=== PATIENT | female | born 1945 | race Caucasian/White ===

== ENCOUNTER 2018-10-13 12:09 | Emergency (ER) | payer OTHER ==
[~2018-10-13] VITALS: Ht 172.7 cm; Wt 100.2 kg
[~2018-10-13 12:09] MED LIST: AMBIEN; AMBIEN PO; ASPIRIN EC325 M1; BUPROPION; CO Q-10 100 MG1 EACH PO; COLACE100 MG; EFFEXOR; EFFEXOR XR PO; ENOXAPARIN30 MG/0.3 SQ; FISH OIL 1,0001 EAC5 PO; GINGER ROOT PO; GRAPE SEED PO; HYDROCODON-ACE1 EAC7; LANTUS SUBQ; LEVOTHYROXINE0.05 MG PO; LIPITOR10 MG PO; LOW DOSE ASPIRI81 M1; NORCO 5-325 TA1 EACH PO; NORFLEX100 MG PO; NOVOLIN 70100 UNIT/1 SQ; OMEGA-3 + VITA1 EAC1 PO; PERCOCET 5-3251 EACH PO; PRAVACHOL20 MG PO; RED YEAST RICE PO; SYNTHROID; SYNTHROID PO; TRILEPTAL; VENLAFAXINE HC150 M1 PO; VERTICALM25 MG PO; VITAMIN B12 PO; VITAMIN D1000 UNI1 PO; WELLBUTRIN 100100 M1 PO; ZESTRIL; ZOFRAN ODT4 MG PO; [UNRECOGNIZED DRUG - OTHER] PO; [UNRECOGNIZED DRUG - OTHER] PO; [UNRECOGNIZED DRUG - OTHER] PO
[2018-10-13 12:39] LABS: ABSOLUTE LYMPHOCYTES 0.4 thou/uL (0.8-5.3); ABSOLUTE MONOCYTES 0.7 thou/uL (0.0-1.2); BASOPHILS 0.2 %; EOSINOPHILS 0.1 %; HEMATOCRIT 37.2 % (37.0-47.0); HEMOGLOBIN 12.4 gm/dL (12.0-15.0); LYMPHOCYTES 3.7 %; MCH 29.1 pg (26.0-34.0); MCHC 33.3 g/dL (28.0-37.0); MCV 87.5 fL (80.0-100.0); MONOCYTES 7.4 %; MPV 9.7 fl. (7.2-11.1); NUCLEATED RBCS 0 /100WBC; PLATELET COUNT* 207 thou/uL (150-400); POLYS 88.6 %; RBC 4.25 mil/uL (4.20-5.00); RDW-CV 14.7 % (10.5-14.5); WBC 10.1 thou/uL (4.0-11.0)
[2018-10-13 12:48] LABS: APTT 30.3 Seconds (25.0-31.3)
[2018-10-13 12:49] LABS: ANION GAP 11 mmol/L (7-16); BUN 25 mg/dL (7-18); CALCIUM 9.1 mg/dL (8.5-10.1); CHLORIDE 95 mmol/L (98-107); CO2 27 mmol/L (21-32); CREATININE 1.8 mg/dL (0.6-1.3); GLUCOSE 250 mg/dL (70-99); POTASSIUM 4.2 mmol/L (3.5-5.1); SODIUM 133 mmol/L (136-145)
[2018-10-13 13:02] LABS: ALBUMIN 3.6 g/dL (3.4-5.0); ALKALINE PHOSPHATASE 87 U/L (46-116); CK-MB MASS 1.4 ng/mL (<0.5-3.6); NT-PRO BRAIN NAT PEPTIDE 1211 pg/mL (<300); SGOT 12 U/L (15-37); SGPT 20 U/L (30-65); TOTAL BILIRUBIN 0.7 mg/dL (<0.1-1.0); TOTAL PROTEIN 7.8 g/dL (6.4-8.2); TROPONIN-I LEVEL <0.06 ng/mL (<0.06)
[2018-10-13 14:24] LABS: URINE BILIRUBIN NEGATIVE (Negative); URINE BLOOD NEGATIVE (Negative); URINE CLARITY CLEAR; URINE COLOR YELLOW; URINE GLUCOSE-RANDOM 1+ (Negative); URINE KETONES NEGATIVE (Negative); URINE LEUKOCYTES-REFLEX 1+ (Negative); URINE PROTEIN TRACE (Negative); URINE UROBILINOGEN 0.2 E.U./dl (0.2-1.0)
[2018-10-13 14:25] LABS: URINE NITRITE-REFLEX POSITIVE (Negative)
[2018-10-13 14:32] LABS: CASTS None Seen /LPF (None Seen); CRYSTALS None Seen /LPF (None Seen); MUCUS 0-3 Light strn/LPF (None Seen); SQUAMOUS 0-3 Few /LPF (0-3); URINE RBC 0-2 Rare /HPF (0-2); URINE WBC-REFLEX 6-15 Few /HPF (0-5)
[2018-10-13] MEDS ORDERED: CIPROFLOXACIN500 M1 PO (14:51)
[2018-10-13 15:04] VITALS: BP 118/47
--- NOTE | 2018-10-14 11:18 | EKG ---
[place] [address] ELECTROCARDIOGRAM REPORT Name: HARMONY PARSONS Room: [facility]#: [id number] Admission: 10/13/18 Attend Phys: Discharge: 10/13/18 Date of : 47 Report #: [id number] THIS REPORT FOR: //name// [facility] ED Test Date: 2018-10-13 Test Time: 12:16:22 Pat Name: HARMONY PARSONS Department: Room: Gender: F Hair Tinter: [facility] : 1945 Requested By: Juliano Chu Order Number: [id number] MD: Enrico Echeverria Measurements Intervals [place] Rate: 51 P: -56 CT: 143 QRS: 27 QRSD: 108 T: 92 QT: 414 QTc: 382 Interpretive Statements Sinus or ectopic atrial bradycardia Borderline repolarization abnormality Compared to ECG 01/22/2016 13:04:18 Ectopic atrial rhythm now present Left ventricular hypertrophy no longer present Electronically Signed On 10-14-2018 11:17:54 CDT by Enrico Echeverria [email or web address] <ELECTRONICALLY SIGNED> By: Enrico Echeverria MD, [facility] 10/14/18 1117 1216 15 Enrico Echeverria MD, [facility] /EPI
== END 2018-10-13 15:05 | disposition home or self-care (01) ==
LOC: M.ERS 12:09
PROVIDERS: Family Medicine
DX: N39.0 Urinary tract infection, site not specified (principal); R42 Dizziness and giddiness; E11.9 Type 2 diabetes mellitus without complications; E78.00 Pure hypercholesterolemia, unspecified; F32.9 Major depressive disorder, single episode, unspecified; Z90.710 Acquired absence of both cervix and uterus; Z96.643 Presence of artificial hip joint, bilateral; Z98.890 Other specified postprocedural states; Z88.5 Allergy status to narcotic agent; Z79.4 Long term (current) use of insulin